=== PATIENT | female | born 1970 | race Two or more races ===

== ENCOUNTER 2024-10-19 09:57 | Emergency (ER) | payer OTHER ==
[~2024-10-19] VITALS: Ht 157.5 cm; Wt 56.7 kg
[2024-10-19] MEDS ORDERED: FAMOtidine 10 MG/ML (4ML VIAL) IV ONE (11:45)
[2024-10-19] MEDS ORDERED: 0.9 % SODIUM CHLORIDE 1,000 ML IV ONE (11:45)
[2024-10-19] MEDS ORDERED: ONDANSETRON HCL 2 MG/ML VIAL IV ONE (11:45)
[2024-10-19 13:06] LABS: HEMATOCRIT 44.6 % (36.0-45.00); HEMOGLOBIN 15.1 g/dL (12.0-15.00); MEAN CORPUSCULAR HEMOGLOBIN 37.7 pg (27.00-32.0); RED BLOOD COUNT 4.01 M/uL (4.00-6.00); RED CELL DISTRIBUTION WIDTH 13.2 % (11.5-14.5)
[2024-10-19 13:07] LABS: PLATELET COUNT 121 K/uL (150-450)
[2024-10-19 13:25] LABS: ALBUMIN 4.6 gm/dL (3.4-5.0); CREATININE SERUM 0.7 mg/dL (0.55-1.02); GFR 88.22; GLOBULINA 4.6 G/DL (2.4-3.5); POTASSIUM 3.97 mEq/L (3.5-5.1); TOTAL PROTEIN 9.2 gm/dL (6.4-8.2)
[2024-10-19] MEDS ORDERED: KETO10TA2 PO (15:27)
[2024-10-19] MEDS ORDERED: ZOFRAN8 MG PO (15:27)
[2024-10-19] MEDS ORDERED: PEPCID AC20 MG PO (15:27)
== END 2024-10-19 17:50 | disposition home or self-care (01) ==
LOC: ER 09:59
PROVIDERS: General Practice
DX: N83.202 Unspecified ovarian cyst, left side (principal); N83.201 Unspecified ovarian cyst, right side; J90 Pleural effusion, not elsewhere classified; R07.89 Other chest pain

== ENCOUNTER 2024-11-30 11:48 | Emergency (ER) | payer OTHER ==
[~2024-11-30] VITALS: Ht 165.1 cm; Wt 77.1 kg
[~2024-11-30 11:48] MED LIST: KETO10TA2 PO; PEPCID AC20 MG PO; ZOFRAN8 MG PO
[2024-11-30] MEDS ORDERED: KETOROLAC TROMETHAMINE 30 MG VIAL IM ONE (15:00)
[2024-11-30] MEDS ORDERED: ORPHENADRINE CITRATE 30 MG/ML AMPUL IM ONE (15:00)
[2024-11-30] MEDS ORDERED: ORPHENADRINE CITRATE 30 MG/ML AMPUL ONE (15:14)
[2024-11-30] MEDS ORDERED: KETOROLAC TROMETHAMINE 60 MG VIAL IM ONE (15:14)
[2024-11-30] MEDS ORDERED: KETO10TA2 PO (16:09)
== END 2024-11-30 16:26 | disposition home or self-care (01) ==
LOC: ER 11:50
DX: S82.61XA Displaced fracture of lateral malleolus of right fibula, initial encounter for closed fracture (principal)